=== PATIENT | male | born 1960 | race Two or more races ===

== ENCOUNTER 2018-07-16 11:53 | Inpatient (IN) | payer OTHER ==
[~2018-07-16] VITALS: Ht 165.1 cm; Wt 79.8 kg
[~2018-07-16 11:53] MED LIST: ENALAPRIL MALEA10 MG PO; FLOVENT DISKU100 MCG IH; NEURONTIN300 MG PO
[2018-07-21] MEDS ORDERED: INTEGRA PLUS C1 EACH PO (06:07)
[2018-07-21] MEDS ORDERED: BACTRIM DS TAB1 EACH PO (06:07)
[2018-07-21] MEDS ORDERED: XARELTO10 MG PO (06:07)
[2018-07-21] MEDS ORDERED: OXYC1TAB9 PO (06:07)
== END 2018-07-21 12:55 | disposition home or self-care (01) | DRG 470 ==
LOC: SURG 07-19 05:55 → O/R 07-19 05:55 → SURH 07-19 10:30 → SURG 07-19 18:25
PROVIDERS: ADMIT Orthopaedic Surgery Sports Medicine
PROC: 0SRC0J9 Replacement of Right Knee Joint with Synthetic Substitute, Cemented, Open Approach (ICD-10-PCS; principal; 2018-07-19 10:30)
DX: M17.11 Unilateral primary osteoarthritis, right knee (principal); I10 Essential (primary) hypertension

== ENCOUNTER 2019-01-31 11:51 | Inpatient (IN) | payer OTHER ==
[~2019-01-31] VITALS: Ht 165.1 cm; Wt 69.4 kg
[~2019-01-31 11:51] MED LIST changes: +BACTRIM DS TAB1 EACH PO; +INTEGRA PLUS C1 EACH PO; +OXYC1TAB9 PO; +XARELTO10 MG PO
[2019-02-17] MEDS ORDERED: INTEGRA PLUS C1 EACH PO (08:33)
[2019-02-17] MEDS ORDERED: XARELTO10 MG PO (08:33)
[2019-02-17] MEDS ORDERED: BACTRIM DS TAB1 EACH PO (08:33)
[2019-02-17] MEDS ORDERED: OXYC1TAB9 PO (08:33)
== END 2019-02-17 13:42 | DRG 470 ==
LOC: SURG 02-11 10:45 → O/R 02-14 06:22 → SURH 02-14 06:22 → SURG 02-14 10:45 → SURH 02-14 13:20 → SURG 02-14 14:15 → SURH 02-17 13:42
PROVIDERS: ADMIT Orthopaedic Surgery Sports Medicine
PROC: 0SRD0J9 Replacement of Left Knee Joint with Synthetic Substitute, Cemented, Open Approach (ICD-10-PCS; principal; 2019-02-14 14:15)
DX: M17.12 Unilateral primary osteoarthritis, left knee (principal); Z96.652 Presence of left artificial knee joint